=== PATIENT | male | born 1975 | race Caucasian/White ===

== ENCOUNTER → 2020-02-13 | Outpatient (CLI) | payer BC ==
--- NOTE | 2020-02-13 13:56 | RAD ---
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 Mild degenerative changes identified in the acromioclavicular joint. Electronically signed by: Jose Luna MD (02/13/2020 1:53 PM) [id number]
== END | disposition home or self-care (01) ==
LOC: RAD 13:33
PROVIDERS: ATTEND Orthopaedic Surgery
DX: M19.011 Primary osteoarthritis, right shoulder (principal)
CPT/HCPCS: 73030